=== PATIENT | male | born 1960 ===

== ENCOUNTER 2023-01-09 07:56 | Outpatient (CLI) | payer OTHER | END 2023-01-09 08:03 | disposition home or self-care (01) | LOC: RAD 07:56 | PROVIDERS: ATTEND Family Medicine Geriatric Medicine | DX: M25.561 Pain in right knee (principal); M25.562 Pain in left knee ==

== ENCOUNTER 2024-09-15 07:20 | Outpatient (CLI) | payer OTHER | END 2024-09-15 07:21 | disposition home or self-care (01) | LOC: NUCLEAR 07:20 | PROVIDERS: ATTEND Internal Medicine | DX: I20.9 Angina pectoris, unspecified (principal) ==